=== PATIENT | female | born 1940 | race Caucasian/White ===

== ENCOUNTER 2022-10-31 12:02 | Outpatient (CLI) | payer MEDICARE, OTHER ==
[2022-11-01] MEDS ORDERED: ESTR1TAB28 PO (16:24)
[2022-11-01] MEDS ORDERED: B COMPLEX (16:36)
[2022-11-01] MEDS ORDERED: KRILL OIL (16:36)
[2022-11-01] MEDS ORDERED: VITAMIN C (16:36)
[2022-11-01] MEDS ORDERED: GLUCOSAMINE (16:36)
[2022-11-01] MEDS ORDERED: BLACK COHOSH (16:36)
[2022-11-01] MEDS ORDERED: BIOTIN (16:36)
[2022-11-01] MEDS ORDERED: [UNRECOGNIZED DRUG - OTHER] (16:36)
[2022-11-01] MEDS ORDERED: MULT-1085 PO (16:36)
[2022-11-01] MEDS ORDERED: GREENS (16:36)
[2022-11-01] MEDS ORDERED: IBUP-24 PO (16:36)
[2022-11-01] MEDS ORDERED: GINKO (16:36)
[2022-11-01] MEDS ORDERED: DIGESTIVE ENZYMES (16:36)
[2022-11-01] MEDS ORDERED: VITAMIN B-12 (16:36)
[2022-11-01] MEDS ORDERED: VITAMIN D3 (16:36)
== END 2022-10-31 23:59 | disposition home or self-care (01) ==
LOC: RAD 12:02
PROVIDERS: ATTEND Otolaryngology
DX: J32.0 Chronic maxillary sinusitis (principal); I51.9 Heart disease, unspecified
CPT/HCPCS: 93005

== ENCOUNTER 2022-11-06 06:15 | Day surgery (SDC) | payer MEDICARE, OTHER ==
[~2022-11-06] VITALS: Ht 161.3 cm; Wt 63.5 kg
[2022-11-06] VITALS (13 sets, daily range): BP systolic 122–176; BP diastolic 59–84
[~2022-11-06 06:15] MED LIST: B COMPLEX; BIOTIN; BLACK COHOSH; DIGESTIVE ENZYMES; ESTR1TAB28 PO; GINKO; GLUCOSAMINE; GREENS; IBUP-24 PO; KRILL OIL; MULT-1085 PO; VITAMIN B-12; VITAMIN C; VITAMIN D3; [UNRECOGNIZED DRUG - OTHER]; famotidine 20mg tablet PO ONE; oxymetazoline 15 ML nasal spray NS ONE; ringers solution, lacted 1,000 ML IV SCH; tranexamic acid inj. 1,000 MG in normal saline IV soln 100ML IV ONE
[2022-11-06] MEDS ORDERED: cocaine 4% topical solution 4ml bottle ONE (06:45)
[2022-11-06] MEDS ORDERED: oxymetazoline 15 ML nasal spray NS ONE (06:46)
[2022-11-06] MEDS ORDERED: mupirocin 2% ointment 22GM ONE (06:46)
[2022-11-06] MEDS ORDERED: methylPREDNISolone acetate 80mg/ml inj**IM only ONE (06:46)
[2022-11-06] MEDS ORDERED: tranexamic acid 100mg/ml inj. ONE (06:46)
[2022-11-06] MEDS ORDERED: LIDOCAINE 2% w/EPI 1:100:000 30mL injection MDV**cath lab 1 only ONE (07:00)
[2022-11-06] MEDS ORDERED: epiNEPHrine 1 MG/ML 1 ml ampule **BRONCH ONLY ONE (08:00)
[2022-11-06] MEDS ORDERED: sevoflurane 250ml liquid IH ONE (08:09)
[2022-11-06] MEDS ORDERED: fentaNYL/PF 50MCG/1 ML 2ML syringe ONE (08:14)
[2022-11-06] MEDS ORDERED: propofol inj 20 ML IV ONE (08:17)
[2022-11-06] MEDS ORDERED: midazolam 1 mg/ML 2ml injection ONE (08:17)
[2022-11-06] MEDS ORDERED: ondansetron/PF 4mg/2ml inj ONE ×2 (08:46→09:10)
[2022-11-06] MEDS ORDERED: ondansetron/PF 4mg/2ml inj IV PRN (08:55)
[2022-11-06] MEDS ORDERED: morphine 4 MG/ML inj SYRINge IV PRN (08:55)
[2022-11-06] MEDS ORDERED: meperidine/PF 25mg/ml syringe IV PRN ×2 (08:55)
[2022-11-06] MEDS ORDERED: ringers solution, lacted 1,000 ML IV SCH (08:55)
[2022-11-06] MEDS ORDERED: proCHLORperazine 10 MG/2 ml inj IV PRN (08:55)
[2022-11-06] MEDS ORDERED: morphine 2 MG/ML inj. syringe IV PRN (08:55)
[2022-11-06] MEDS ORDERED: dexamethasone sod phosphate 4mg/ml inj. ONE (09:11)
--- NOTE | 2022-11-06 09:13 | NUR ---
Received from OR via , accompanied by Anesthesiologist ARMIDA AND OR NURSE and report given by Anesthesiolgist. PT IS DROWSY YET ABLE TO FOLLOW VERBAL PROMPTS. DENIES PAIN OR DISCOMFORT. 20G TO RT WRIST. NASAL PACKING TO LEFT NOSTRIL. VSS WITH HIGH SBP; WILL WATCH THIS IS NOT NORMAL FOR PT. Addendum: 11/06/22 at 0938 by Lorin Niño RN Amended: Links added.
[2022-11-06] MEDS ORDERED: LIDOcaine 1% w/EPI 1:100,000 30ml vial (MDV) IJ ONE (09:18)
[2022-11-06] MEDS: meperidine/PF 25mg/ml syringe IV PRN ×2 (09:49→10:02)
[2022-11-06] MEDS ORDERED: labetalol 20mg/4ml (5mg/ml) syringe IV ONE (10:00)
[2022-11-06] MEDS ORDERED: hydrALAZINE 20mg/ml inj. IV PRN (10:30)
[2022-11-06] MEDS ORDERED: hydrALAZINE 20mg/ml inj. IV ONE (10:31)
--- NOTE | 2022-11-06 11:03 | NUR ---
ALL DISCHARGE CRITERIA HAS BEEN MET. VSS, PAIN AT A TOLERABLE LEVEL, VOIDING AND ABLE TO SAFELY AMBULATE AND TRANSFER SELF. IV TAKEN OUT WITHOUT ANY COMPLICATIONS. ALL DISCHARGE INSTRUCTIONS COVERED WITH PATIENT AND ALL QUESTIONS ANSWERED. PATIENT TAKEN OUT VIA WHEELCHAIR TO PERSONAL VEHICLE WHERE FAMILY/FRIEND DROVE PATIENT HOME. Addendum: 11/06/22 at 1126 by Lorin Niño RN Amended: Links added.
== END 2022-11-06 11:03 | disposition home or self-care (01) ==
LOC: PAS 06:15
PROVIDERS: ATTEND Otolaryngology
DX: J32.9 Chronic sinusitis, unspecified (principal); J34.1 Cyst and mucocele of nose and nasal sinus; G47.30 Sleep apnea, unspecified; Z20.822 Contact with and (suspected) exposure to COVID-19; Z90.710 Acquired absence of both cervix and uterus; Z98.890 Other specified postprocedural states; Z79.899 Other long term (current) drug therapy; Z86.19 Personal history of other infectious and parasitic diseases
CPT/HCPCS: 31255; 31267; 36415; 61782; 82948; 87635; 93005; A6402; C9250; C9803; J0171; J0360; J1100; J2175; J2250; J2405; J2704; J3010; J3490; J7030; J7050; J7120; U0003; U0005; Z7506; Z7508; Z7512; 88304; 88311; A4618; A6449; A7000; J1040